=== PATIENT | female | born 1970 | race Caucasian/White ===

== ENCOUNTER 2019-09-04 13:58 | Emergency (ER) | payer OTHER ==
[2019-09-04] MEDS ORDERED: NS 0.9% 1000 ML** 1,000 ML IV ONE (14:12)
[2019-09-04] MEDS ORDERED: Ondansetron INJ* 2 MG/ML VIAL IV ONE (14:12)
[2019-09-04 16:11] LABS: ABS Basophils 0.1 10^3/ul (0-0.2); ABS Lymphocytes 2.6 10^3/ul (1.0-4.8); ABS Monocytes 1.1 10^3/ul (0-0.8); ABS Neutrophils 16.3 10^3/ul (1.5-7.7); Eosinophil % 0.1 %; Hematocrit 43 % (35-47); Mean Corpuscular HGB Conc 35 g/dL (31-36); Mean Corpuscular Hemoglobin 33 pg (27-31); Mean Corpuscular Volume 95 fL (80-97); Mean Platelet Volume 6.8 fL (7.4-10.4); Platelet Count 442 10^3/uL (150-450); Red Blood Count 4.51 10^6 /uL (3.70-4.87); Red Cell Distribution Width 13 % (10-15); White Blood Count 20.2 10^3/uL (3.5-10.8)
[2019-09-04 16:31] LABS: Albumin 5.1 g/dL (3.2-5.2); Albumin/Globulin Ratio 1.5 (1-3); BUN/Creatinine Ratio 19.7 (8-20); C Reactive Protein 2.84 mg/L (<8.01); Calcium 10.4 mg/dL (8.6-10.3); EGFR African American 106.8 (>60); EGFR Non-African American 88.2 (>60); Globulin 3.3 g/dL (2-4); Magnesium 1.9 mg/dL (1.9-2.7); Potassium 3.7 mmol/L (3.5-5.0); Total Bilirubin 0.6 mg/dL (0.2-1.0); Total Protein 8.4 g/dL (6.4-8.9)
[2019-09-04] MEDS ORDERED: Lorazepam PYXIS KEY PRN (16:34)
[2019-09-04] MEDS ORDERED: LORazepam INJ* 2 MG/ML 1 ML VIAL IV PUSH ONE (16:34)
[2019-09-04 16:36] LABS: HCG Pregnancy 1.58 mIU/mL
[2019-09-04 16:43] LABS: Influenza A Molecular NEGATIVE (Negative); Influenza B Molecular NEGATIVE (Negative)
[2019-09-04] MEDS ORDERED: Lorazepam PYXIS KEY ONE (16:45)
--- NOTE | 2019-09-04 17:15 | ED ---
Abdominal Pain/Female - HPI Summary HPI Summary: Patient is a 49-year-old female who presents to the ED with nausea and vomiting after drinking alcohol last evening. 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 She is unsure how much she drank. She woke this morning with nausea and vomiting. She states she has been unable to eat or drink anything since this morning and is now having leg cramps due to dehydration. She states she has been seen here in the past for same complaint and stated IV fluids and nausea medication. She denies any diarrhea, constipation, abdominal pain. Denies any back pain or urinary symptoms. Denies any hematemesis. She takes no medications and is otherwise healthy. - History of Current Complaint Chief Complaint: EDFluSymptoms Stated Complaint: VOMITING FOR 12 HOURS PER PT Time Seen by Provider: 09/04/19 15:26 Hx Obtained From: Patient ?: No Onset/Duration: Sudden Onset Timing: Constant Severity Initially: Moderate Severity Currently: Moderate Pain Intensity: 8 Pain Scale Used: 0-10 Numeric Radiates: No Aggravating Factor(s): Nothing Alleviating Factor(s): Nothing Associated Signs and Symptoms: Positive: Negative Allergies/Adverse Reactions: Allergies Allergy/AdvReac Type Severity Reaction Status Date / Time No Known Allergies Allergy Verified 09/04/19 14:34 Home Medications: Home Medications QUEtiapine TAB* [Seroquel 25 MG TAB*] 50 - 75 mg PO BEDTIME PRN 09/04/19 [ History Confirmed 09/04/19] PMH/Surg Hx/FS Hx/Imm Hx Previously Healthy: Yes Endocrine/Hematology History: Denies: Hx Anticoagulant Therapy Respiratory History: Reports: Hx Asthma - Immunization History Date of Tetanus Vaccine: Unknown Date of Influenza Vaccine: None Hx Pertussis Vaccination: No Immunizations Up to Date: Yes Infectious Disease History: No Infectious Disease History: Denies: Traveled Outside the [place] in Last 30 Days - Social History Occupation: Employed Full-time Lives: With Family Alcohol Use: relapse last night Hx Substance Use: Yes Substance Use Type: Reports: Marijuana Hx Tobacco Use: Yes Smoking Status (MU): Heavy Every Day Tobacco Smoker Review of Systems Negative: Fever, Chills, Fatigue, Skin Diaphoresis Negative: Palpitations, Chest Pain Negative: Shortness Of Breath, Cough Positive: Abdominal Pain, Vomiting, Nausea. Negative: Diarrhea Genitourinary: Negative Positive: no symptoms reported, see HPI Negative: Arthralgia, Myalgia All Other Systems Reviewed And Are Negative: Yes Physical Exam Triage Information Reviewed: Yes Vital Signs On Initial Exam: Initial Vitals Temp Pulse Resp BP Pulse Ox 97.4 F 96 20 157/95 98 09/04/19 14:30 09/04/19 14:30 09/04/19 14:30 09/04/19 14:30 09/04/19 14:30 Appearance: Positive: Ill-Appearing Skin: Positive: Diaphoretic Head/Face: Positive: Normal Head/Face Inspection Eyes: Positive: EOMI, Conjunctiva Clear Neck: Positive: No Lymphadenopathy Respiratory/Lung Sounds: Positive: Clear to Auscultation, Breath Sounds Present Cardiovascular: Positive: Pulses are Symmetrical in both Upper and Lower Extremities Abdomen Description: Positive: Nontender, No Organomegaly, Soft Musculoskeletal: Positive: Strength/ROM Intact Neurological: Positive: Speech Normal Psychiatric: Positive: Affect/Mood Appropriate Procedures - Sedation Patient Received Moderate/Deep Sedation with Procedure: No Diagnostics - Vital Signs Vital Signs Temp Pulse Resp BP Pulse Ox 09/04/19 16:47 16 09/04/19 16:37 83 147/93 100 09/04/19 16:00 91 100 09/04/19 15:26 85 133/108 100 09/04/19 14:30 97.4 F 96 20 157/95 98 - Laboratory Lab Results: Lab Results 09/04/19 09/04/19 09/04/19 Range/Units 15:59 15:59 16:13 WBC 20.2 H (3.5-10.8) 10^3/uL RBC 4.51 (3.70-4.87) 10^6 /uL Hgb 15.0 (12.0-16.0) g/dL Hct 43 (35-47) % MCV 95 (80-97) fL MCH 33 H (27-31) pg MCHC 35 (31-36) g/dL RDW 13 (10-15) % Plt Count 442 (150-450) 10^3/uL MPV 6.8 L (7.4-10.4) fL Neut % (Auto) 81.0 % Lymph % (Auto) 13.0 % [place] % (Auto) 5.3 % Eos % (Auto) 0.1 % Baso % (Auto) 0.6 % Absolute Neuts (auto) 16.3 H (1.5-7.7) 10^3/ul Absolute Lymphs (auto) 2.6 (1.0-4.8) 10^3/ul Absolute Monos (auto) 1.1 H (0-0.8) 10^3/ul Absolute Eos (auto) 0.0 (0-0.6) 10^3/ul Absolute Basos (auto) 0.1 (0-0.2) 10^3/ul Absolute Nucleated RBC 0.0 10^3/ul Nucleated RBC % 0.0 Sodium 142 (135-145) mmol/L Potassium 3.7 (3.5-5.0) mmol/L Chloride 105 (101-111) mmol/L Carbon Dioxide 22 (22-32) mmol/L Anion Gap 15 H (2-11) mmol/L BUN 14 (6-24) mg/dL Creatinine 0.71 (0.51-0.95) mg/dL Est GFR ( Amer) 106.8 (>60) Est GFR (Non-Af Amer) 88.2 (>60) BUN/Creatinine Ratio 19.7 (8-20) Glucose 125 H (70-100) mg/dL Calcium 10.4 H (8.6-10.3) mg/dL Magnesium 1.9 (1.9-2.7) mg/dL Total Bilirubin 0.60 (0.2-1.0) mg/dL AST 19 (13-39) U/L ALT 14 (7-52) U/L Alkaline Phosphatase 73 (34-104) U/L C-Reactive Protein 2.84 (<8.01) mg/L Total Protein 8.4 (6.4-8.9) g/dL Albumin 5.1 (3.2-5.2) g/dL Globulin 3.3 (2-4) g/dL Albumin/Globulin Ratio 1.5 (1-3) Lipase 13 (11.0-82.0) U/L Beta HCG, Quant 1.58 mIU/mL Influenza A (Rapid) Negative (Negative) Influenza B (Rapid) Negative (Negative) Result Diagrams: 09/04/19 15:59 09/04/19 15:59 Lab Statement: Any lab studies that have been ordered have been reviewed, and results considered in the medical decision making process. Abdominal Pain Fem Course/Dx - Course Course Of Treatment: Unraveling to the ED, the patient appears ill, diaphoretic and vomiting. Patient is given IV fluids, Zofran and labs were obtained. Showed some elevated white count of 20,000 with a normal CRP. Research of previous visits shows similar labs after patient arrives with acute nausea and vomiting associated with alcohol. She continues to have nausea despite the Zofran and is subsequently given Ativan. This with good relief. She remained asymptomatic for approximately 45 minutes and he can say she becomes nauseous again. She was given Reglan at this time. Again, patient states she is asymptomatic and is okay for home at this time. Encouraged plenty of fluids and is given prescription for Zofran. She is encouraged cessation of alcohol use. - Diagnoses Provider Diagnoses: Nausea and vomiting, Alcohol use Discharge ED - Sign-Out/Discharge Documenting (check all that apply): Patient Departure - Discharge Plan Condition: Stable Disposition: HOME Prescriptions: Ondansetron ODT TAB* [Zofran 4 MG Odt TAB*] 4 mg PO Q6H PRN #12 tab.odt MDD 4 PRN Reason: Nausea Patient Education Materials: Acute Nausea and Vomiting (ED) Referrals: Lisa Atkinson NP [Primary Care Provider] - Additional Instructions: Gatorade and ibuprofen Zofran up to four times daily for nausea Do not drink to excess - Billing Disposition and Condition Condition: STABLE Disposition: Home - Attestation Statements Provider Attestation: I was available for consultation for this patient. I did not evaluate the patient or participate in any medical decision making or disposition decisions unless I am specifically named in the chart as having consulted on the patient. If I have consulted on the patient, please see my own ED note on the patient encounter. Dayton Brown MD
[2019-09-04] MEDS ORDERED: Metoclopramide IV* 5 MG/ML 2 ML VIAL IV ONE (17:20)
[2019-09-04 17:29] VITALS: BP 160/99
== END 2019-09-04 17:29 | disposition home or self-care (01) ==
LOC: ED 13:58
DX: R11.2 Nausea with vomiting, unspecified (principal); F10.10 Alcohol abuse, uncomplicated; R10.9 Unspecified abdominal pain; F17.210 Nicotine dependence, cigarettes, uncomplicated
CPT/HCPCS: 36415; 80053; 83605; 83690; 83735; 84702; 85025; 86140; 96361; 96374; 96375; 99283; J2060; J2405; J2765